=== PATIENT | female | born 1985 | race Two or more races ===

== ENCOUNTER 2017-10-06 23:29 | Emergency (ER) | payer MEDICAID ==
[~2017-10-06] VITALS: Ht 160 cm; Wt 49.9 kg
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
[2017-10-07 00:21] VITALS: BP 121/74
== END 2017-10-07 00:24 | disposition home or self-care (01) ==
LOC: ER 23:42
DX: S06.0X0A Concussion without loss of consciousness, initial encounter (principal); Z88.1 Allergy status to other antibiotic agents; V49.59XA Passenger injured in collision with other motor vehicles in traffic accident, initial encounter; Y93.89 Activity, other specified; Y92.413 State road as the place of occurrence of the external cause; Y99.8 Other external cause status
CPT/HCPCS: A4606; Z7502; Z7610